=== PATIENT | female | born 1975 | race Hispanic/Latino ===

== ENCOUNTER → 2024-10-17 | Outpatient (REF) | payer OTHER ==
[~2024-10-17] MED LIST: DIATRIZOATE MEGL/DIATRIZOA SOD 30 ML BTL PO ONE; IOPAMIDOL 370 MG/ML 100 ML INFUS..BTL INJ ONE; IOTHALAMATE MEGLUMINE 17.20% 250 ML BTL ONE
== END ==
LOC: DX 09:15
PROVIDERS: ATTEND Student in an Organized Health Care Education/Training Program
DX: T83.712A Erosion of implanted urethral mesh to surrounding organ or tissue, initial encounter (principal)
CPT/HCPCS: 74455; Q9963; Q9967